=== PATIENT | male | born 1975 | race Two or more races ===

== ENCOUNTER → 2019-12-24 | Emergency (ER) | payer MEDICAID ==
[~2019-12-24] VITALS: Ht 177.8 cm; Wt 63.5 kg
[~2019-12-24] MED LIST: MAGNESIUM CITRATE SOLUTION 300 ML BTL PO ONE; MORPHINE SULFATE 4 MG/ML SYR/VIAL IV ONE; ONDANSETRON HCL 4 MG/2 ML VIAL IV ONE; POTASSIUM CHL 20 Meq TABLET PO ONE; SODIUM CHLORIDE 0.9% 1,000 ML IV ONE
[2019-12-24 03:15] LABS: Basophils # (auto) 0 10 ^3/uL (0-0.2); Basophils % (auto) 0.6 % (0.0-2.0); Eosinophils # (auto) 0.1 10 ^3/uL (0-0.8); Eosinophils % (auto) 0.7 % (0.0-7.0); Hematocrit 45.8 % (41.0-53.0); Hemoglobin 15.7 g/dL (13.5-17.5); Lymphocytes # (auto) 1.1 10 ^3/uL (0.4-5.4); Lymphocytes % (auto) 14.8 % (10.0-50.0); Mean Corpuscular Hemoglobin 32.6 pg (28.0-32.0); Mean Corpuscular Hgb Conc. 34.2 g/dL (32.0-36.0); Mean Corpuscular Volume 95.4 fL (80.0-100.0); Monocytes # (auto) 0.8 10 ^3/uL (0-1.3); Monocytes % (auto) 9.9 % (0.0-12.0); Neutrophils # (auto) 5.6 10 ^3/uL (1.6-8.6); Nucleated Red Blood Cells % 0.1 %; Platelet Count (auto) 230 10^3/uL (140-450); Red Cell Distribution Width 13.6 % (11.8-14.3); White Blood Cell 7.6 10^3/uL (4.4-10.8)
[2019-12-24 03:24] LABS: Albumin 3.6 g/dL (3.4-5.0); BUN/Creatinine Ratio 12.5; Calcium 8.5 mg/dL (8.5-10.1); Potassium 3.1 mmol/L (3.5-5.1)
[2019-12-24 03:27] LABS: Bilirubin, Total 0.3 mg/dL (0.2-1.0); Total Protein 7.1 g/dL (6.4-8.2)
[2019-12-24 05:00] VITALS: BP 151/115
[2019-12-24 05:14] LABS: Urine Bacteria NONE SEEN /hpf (None Seen); Urine Blood Negative /uL (Negative); Urine Specific Gravity 1.012 (1.001-1.035); Urine WBC <1 /hpf (0 - 3)
[2019-12-24 05:30] LABS: Amphetamine Screen, Urine NEGATIVE (NEGATIVE); Barbiturate Scree,Urine NEGATIVE (NEGATIVE); Benzodiazephine Screen, Urine NEGATIVE (NEGATIVE); Cannabinoid Screen, Urine NEGATIVE (NEGATIVE); Cocaine Screen, Urine NEGATIVE (NEGATIVE); Opiate Scree,Urine NEGATIVE (NEGATIVE); Phencyclidine Screen, Urine NEGATIVE (NEGATIVE)
[2019-12-24 05:31] LABS: Alcohol, Urine < 3.0 mg/dL (0-5)
== END | disposition home or self-care (01) ==
LOC: EDUNIT# 01:28 → EDBD 01:34 → ER 01:36
DX: K59.00 Constipation, unspecified (principal); E87.6 Hypokalemia
CPT/HCPCS: 36415; 74176; 80053; 80307; 81001; 82150; 83690; 85025; 96374; 96375; 99284; J2270; J2405

== ENCOUNTER 2020-06-09 08:44 | Emergency (ER) | payer MEDICAID ==
[~2020-06-09] VITALS: Ht 170.2 cm; Wt 65.8 kg
[2020-06-09 08:59] VITALS: BP 138/93
[2020-06-09] MEDS ORDERED: KETOROLAC TROMETH 60MG/2ML VIAL IM ONE (10:15)
== END 2020-06-09 10:42 | disposition home or self-care (01) ==
LOC: ER 08:44
DX: M23.91 Unspecified internal derangement of right knee (principal); X50.0XXA Overexertion from strenuous movement or load, initial encounter; Y93.89 Activity, other specified; Y92.89 Other specified places as the place of occurrence of the external cause; Y99.8 Other external cause status
CPT/HCPCS: 73562; 96372; 99283; J1885

== ENCOUNTER 2024-01-26 15:17 | Emergency (ER) | payer MEDICAID, OTHER ==
[~2024-01-26] VITALS: Ht 167.6 cm; Wt 50.2 kg
[2024-01-26 15:28] VITALS: BP 185/125; PULSE 69; RESP 18; O2SAT 1
[2024-01-26] MEDS: cloNIDine HCL 0.1 MG TAB PO ONE (15:38)
[2024-01-26 16:48] LABS: Basophils # (auto) 0 10 ^3/uL (0-0.2); Basophils % (auto) 0.5 % (0.0-2.0); Eosinophils # (auto) 0.1 10 ^3/uL (0-0.8); Eosinophils % (auto) 0.7 % (0.0-7.0); Hematocrit 46.3 % (41.0-53.0); Hemoglobin 15.6 g/dL (13.5-17.5); Lymphocytes # (auto) 1.3 10 ^3/uL (0.4-5.4); Lymphocytes % (auto) 17.5 % (10.0-50.0); Mean Corpuscular Hgb Conc. 33.7 g/dL (32.0-36.0); Mean Corpuscular Volume 94.9 fL (80.0-100.0); Monocytes # (auto) 0.7 10 ^3/uL (0-1.3); Monocytes % (auto) 8.9 % (0.0-12.0); Neutrophils # (auto) 5.4 10 ^3/uL (1.6-8.6); Neutrophils % (auto) 72.4 % (37.0-80.0); Nucleated Red Blood Cells % 0.1 %; Red Blood Cells 4.88 10^6/uL (4.5-5.90); Red Cell Distribution Width 14.1 % (11.8-14.3); White Blood Cell 7.5 10^3/uL (4.4-10.8)
[2024-01-26 17:06] LABS: Alanine Aminotransferase 16 U/L (7-40); Albumin 4.8 g/dL (3.2-4.8); Alkaline Phosphatase 91 U/L (46-116); Anion Gap 6 (5-15); Aspartate Aminotransferase 15 U/L (13-40); BUN/Creatinine Ratio 9.8 (10.0-20.0); Bilirubin, Total 0.4 mg/dL (0.2-1.0); Blood Urea Nitrogen 10 mg/dL (9-23); Calcium 9.6 mg/dL (8.5-10.1); Carbon Dioxide 31 mmol/L (20-30); Chloride 103 mmol/L (98-107); Glucose 135 mg/dL (74-106); Potassium 3.6 mmol/L (3.5-5.1); Sodium 140 mmol/L (136-145)
== END 2024-01-26 18:59 | disposition home or self-care (01) ==
LOC: ER 15:17
DX: I10 Essential (primary) hypertension (principal); R07.89 Other chest pain
CPT/HCPCS: 36415; 71045; 80053; 83880; 84484; 85025

== ENCOUNTER 2024-12-23 12:14 | Inpatient (IN) | payer MEDICAID ==
[~2024-12-23] VITALS: Ht 167.6 cm; Wt 48.6 kg
--- NOTE | 2024-12-23 12:32 | ED.PDOC ---
HPI Comments Initial Vital Signs: Temp : 98.5F BP: 147/98 HR: 90 RR: 14 SpO2: 100% Past Surgical History: Denies Social History: Tobacco use. Denies ETOH or drug use. Medications: Patient does not know the name Allergies: NKDA Past Medical History: Anxiety, developmental delay possible autism HPI: Poor Historian. 49-year-old male [facility] for initially having nonspecific generalized abdominal pain after he ate some spicy food some mountain dew some Cheetos and a sandwich. He said the abdominal pain has subsided but then he started developing chest pain and anxiety. He has known history of anxiety. Per EMS, patient was tachypneic at the scene with stable vital signs. Chest pain is nonspecific generalized across his chest. Denies any cardiac history or use of drugs. REVIEW OF SYSTEMS: CONSTITUTIONAL: Denies acute: fever, diaphoresis, chills, generalized weakness. HEAD: Denies acute: headache, photophobia Eyes: Denies acute: Double vision, vision loss, eye pain, eye discharge. EARS: Denies acute: tinnitus, hearing loss, ear discharge, ear pain, THROAT: Denies acute: sore throat, swelling, difficulty swallowing , pain with swallowing, change in voice. NECK: Denies acute: neck pain, neck swelling, stiff neck. HEART: Denies acute : palpitations, LUNGS: Denies acute: SOB, wheezing, cough, hemoptysis ABDOMEN: Denies acute: abdominal pain, Nausea, Vomiting, diarrhea, melena , hematemesis, hematochezia SKIN: Denies acute: rash, redness, lesions, itchiness. EXTREMITIES: Denies acute: calf pain, numbness, tingling, weakness, denies pain in extremity. Denies acute: Low back pain. Neuro: Denies acute: focal neurological deficit, motor or sensory focal neurological deficit, tremors, seizure like activity, confusion, dizziness, change in mental status, loss of bowel or bladder function, cauda equina like symptoms. : Denies acute: dysuria, hematuria, flank pain, increase in urinary frequency. PSYCH: Denies acute: hallucination, suicidal ideation, homicidal ideation. PHYSICAL EXAM: General: no acute distress, awake and alert. Head: normocephalic, atraumatic. Neck: supple, trachea is midline, no swelling. Throat: Normal phonation. Eyes:, no erythema, no purulent discharge, no proptosis, no icterus. Heart: regular rate, regular rhythm, no significant murmur appreciated. Lungs: no apparent respiratory distress, Able to speak in full sentences. No wheezing, no rhonchi, no crackles. No stridors Clear to auscultation bilaterally. Abdomen: non tender to palpation, non distended, soft, no guarding, no rebound, + bowel sounds. Neuro: Awake, Alert, oriented to name, self, situation, follows commands GCS=15. Speech is normal. Skin: no petechia, no purpura, no cyanosis, non-pale, not jaundice. Lower extremities: --no - Pitting edema no deformity, no focal swelling, no calf TTP. Makes eye contact. moves all four extremities. Face: no apparent facial droop. No CVA tenderness to percussion bilaterally. Ambulating in the ED independently. Ears: Normal appearing TM b/l, Stroke: finger to nose cerebellar testing is intact. No pronator drift. Symmetrical medical record assistant muscle strength b/l PERRLA, EOM-I CN 2-12 are grossly intact, Pedal pulses are palpable. No nystagmus. No nuchal rigidity, Kernig's sign, Brudzinski's sign, no meningeal signs. ED COURSE: Chief Complaint: Chest Pain Time Seen by MD: 12:31 Primary Care Provider: unknown Reviewed Notes: Nurses Notes, Medications, Allergies Allergies: Coded Allergies: NO KNOWN ALLERGIES (Unverified , 12/24/19) Information Source: Patient, Emergency Med Personnel Mode of Arrival: EMS Was a procedure done? Was a procedure done?: No CP Differential Dx Differential Diagnosis: N/A Differential Diagnosis: Other (DDX include renal disease, thyroid disease, electrolyte abnormality, increased salt intake, medications non-compliance, undiagnosed HTN, Hypertensive crisis, hypertensive urgency., drug toxicity.) Differential Diagnosis: Other (Ddx include but not limitied to gastritis, musculoskeletal pain, radiculopathy, atypical chest pain, dissection, aneurysm, ACS, unstable angina, hiatal hernia, GERD, anxiety, costochondritis, PE, pneumothroax, neoplasm, cardiac ischemia, drug abuse, anemia.) X-Ray, Labs, Meds, VS Vital Signs Date Time Temp Pulse Resp B/P (MAP) Pulse Ox O2 Delivery O2 Flow Rate FiO2 12/23/24 21:36 68 130/100 12/23/24 21:04 65 120/70 12/23/24 20:06 78 169/118 12/23/24 20:05 75 169/118 12/23/24 20:00 76 12/23/24 19:06 169/115 12/23/24 17:54 98.0 71 20 155/114 (128) 99 98.0 12/23/24 17:54 71 155/114 12/23/24 17:19 88 144/111 12/23/24 17:01 144/111 12/23/24 16:22 146/112 12/23/24 16:01 87 18 98 Room Air 12/23/24 16:01 98.5 87 18 146/112 (123) 98 98.5 12/23/24 16:01 87 18 96 Room Air* 0 21 12/23/24 12:21 98.5 90 14 147/98 (114) 100 98.5 Lab Test 12/23/24 15:42 12/23/24 13:47 12/23/24 12:39 12/23/24 12:30 Range/Units Troponin I High Sensitivity 18 13 11 </=54 ng/L Lactic Acid Level 0.8 0.4-2.0 mmol/L White Blood Count 6.2 4.4-10.8 10^3/uL Red Blood Count 4.63 4.5-5.90 10^6/uL Hemoglobin 15.3 13.5-17.5 g/dL Hematocrit 44.8 41.0-53.0 % Mean Corpuscular Volume 96.8 80.0-100.0 fL Mean Corpuscular Hemoglobin 33.0 H 28.0-32.0 pg Mean Corpuscular Hemoglobin Concent 34.1 32.0-36.0 g/dL Red Cell Distribution Width 13.9 11.8-14.3 % Platelet Count 260 140-450 10^3/uL Mean Platelet Volume 8.8 6.9-10.8 fL Neutrophils (%) (Auto) 69.8 37.0-80.0 % Lymphocytes (%) (Auto) 20.1 10.0-50.0 % Monocytes (%) (Auto) 8.9 0.0-12.0 % Eosinophils (%) (Auto) 0.6 0.0-7.0 % Basophils (%) (Auto) 0.6 0.0-2.0 % Neutrophils # (Auto) 4.3 1.6-8.6 10 ^3/uL Lymphocytes # (Auto) 1.2 0.4-5.4 10 ^3/uL Monocytes # (Auto) 0.5 0-1.3 10 ^3/uL Eosinophils # (Auto) 0 0-0.8 10 ^3/uL Basophils # (Auto) 0 0-0.2 10 ^3/uL Nucleated Red Blood Cells 0.1 % Sodium Level 143 136-145 mmol/L Potassium Level 3.6 3.5-5.1 mmol/L Chloride Level 107 98-107 mmol/L Carbon Dioxide Level 28 20-31 mmol/L Anion Gap 8 5-15 Blood Urea Nitrogen 10 9-23 mg/dL Creatinine 1.11 0.700-1.30 mg/dL Glomerular Filtration Rate Calc 81 >90 mL/min BUN/Creatinine Ratio 9.0 L 10.0-20.0 Serum Glucose 102 74-106 mg/dL Calcium Level 10.3 8.7-10.4 mg/dL Magnesium Level 2.1 1.6-2.6 mg/dL Total Bilirubin 0.6 0.2-1.0 mg/dL Aspartate Amino Transferase (AST) 12 L 13-40 U/L Alanine Aminotransferase (ALT) 20 7-40 U/L Alkaline Phosphatase 82 46-116 U/L Total Protein 7.1 5.7-8.2 g/dL Albumin 4.9 H 3.2-4.8 g/dL Lipase 35 12-53 U/L Urine Color Light-yellow Yellow Urine Clarity Clear Clear Urine pH 7.0 5.0-9.0 Urine Specific [place] 1.016 1.001-1.035 Urine Protein Negative Negative Urine Ketones Negative Negative Urine Blood Negative Negative /uL Urine Nitrite Negative Negative Urine Bilirubin Negative Negative Urine Urobilinogen Normal Negative mg/dL Urine Leukocyte Esterase Negative Negative /uL Urine RBC 1 0 - 3 /hpf Urine Microscopic WBC 0-3 /HPF Urine Squamous Epithelial Cells None seen <5 /hpf Urine Bacteria None seen None Seen /hpf Urine Mucus Few None Seen Urine Glucose Normal Normal mg/dL Urine Opiates Screen Neg NEGATIVE Urine Fentanyl Screen Neg NEGATIVE Urine Barbiturates Screen Neg NEGATIVE Urine Phencyclidine Screen Neg NEGATIVE Urine Amphetamines Screen Neg NEGATIVE Urine Benzodiazepines Screen Neg NEGATIVE Urine Cocaine Screen Neg NEGATIVE Urine Cannabinoids Screen Neg NEGATIVE Current Medications Medications (Trade) Dose Ordered Sig/Demi Route Start Time Stop Time Status Last Admin Nitroglycerin (Ntrostat Sublingual) 0.4 mg ONCE ONCE SL 12/23/24 16:15 12/23/24 16:16 DC 12/23/24 16:22 Labetalol HCl (Labetalol HCl) 5 mg ONCE ONCE IV 12/23/24 17:15 12/23/24 17:16 DC 12/23/24 17:19 Hydralazine HCl (Apresoline Injection) 5 mg ONCE ONCE IV 12/23/24 18:30 12/23/24 18:38 DC 12/23/24 19:06 Labetalol HCl (Labetalol HCl) 10 mg ONCE ONCE IV 12/23/24 19:45 12/23/24 19:46 DC 12/23/24 20:06 Nicardipine HCl 250 ml @ 50 mls/hr Q5H IV 12/23/24 21:00 12/23/24 21:36 [place] [id number] Ph: [phone] DIAGNOSTIC IMAGING Diagnostic Imaging Report : [id number] Signed PATIENT: MANDY RIVERA ACCT: [id number] UNIT: [id number] : 1975 LOC: ER ROOM / BED: / AGE / SEX: 49 / M ADM STATUS: REG ER SERVICE 1230 ORDERING PHYSICIAN: CATHY METCALF DO PROCEDURE(s): CXRP - CHEST PORTABLE REASON: cp ORDER NUMBER(s): [id number], ACCESSION NUMBER(s): [id number] CHEST RADIOGRAPH Indication: cp Technique: Single frontal view of the chest was obtained COMPARISON: XY CHEST PORTABLE on DOS: 01/26/24 FINDINGS: Lines and Tubes: None Lungs: Clear Pleura: No effusion. No pneumothorax. Cardiomediastinal contours: Unremarkable Bones: Unremarkable IMPRESSION: No acute disease. ATED BY: SENTHIL ALEGRE MD DICTATED DATE/TIME: 12/23/24 1253 SIGNED BY: SENTHIL ALEGRE MD SIGNED DATE/TIME: 12/23/24 1253 CC: Time of 1ST Reevaluation: 13:31 Reevaluation 1ST: Unchanged Time of 2ND Reevaluation: 17:58 (Chest pain has resolved awhile ago however patient continues to be hypertensive. We will try some sublingual nitroglycerin. We tried labetalol 5 mg IV.) Patient Education/Counseling: Diagnosis, Treatment Family Education/Counseling: No Family Present Comments Patient presented with the above HPI.--chest pain----workup was initiated. patient was found with the above mentioned diagnosis. the following medications were ordered: please refer to order lists of meds and tests obtained by myself Dr. Metcalf. Patient ED course and VS have been stabilized. Patient has been reassessed in the ED and remained in a stable condition. Pertinent incidental findings were discussed with the patient and/or family. Patient/family voices understanding and is agreeable with plan. Patient has been observed in the ED adequate length of time to insure improvement/stability. Escalation of care considered: Consideration of escalation to observation or admission Patient was found with hypertensive urgency. Multiple interventions were given, nitroglycerin, labetalol, hydralazine. Patient continues to be hypertensive. Nicardipine drip was initiated. Patient was ADMITTED to the medicine team for further evaluation and treatment of their presentation. All the reports of any imaging studies that were ordered by myself were reviewed by myself. Departure 1 Departure Time of Disposition: 17:35 Impression: Primary Impression: Chest pain Additional Impression: Hypertensive urgency Disposition: 09 ADMITTED INPATIENT Admit to: Tele Condition: Guarded Additional Instructions: Discharged With: Self Critical Care Note Critical Care Time?: Yes (55 min-critical care time only) Heart Score Heart Score: Heart Score Response (Comments) Value History Slightly Suspicious 0 EKG Normal 0 Age 45-64 1 Risk Factors 1 or 2 risk factors 1 Troponin Normal limit 0 Total 2 I personally scribed for CATHY METCALF DO ([email or web address]) on 12/23/24 at 12:32. Electronically submitted by Nestor Daily ([email or web address]). I personally scribed for CATHY METCALF DO ([email or web address]) on 12/23/24 at 13:24. E lectronically submitted by Nestor Daily ([email or web address]). I personally scribed for CATHY METCALF DO ([email or web address]) on 12/23/24 at 13:47. El ectronically submitted by Nestor Daily ([email or web address]). CATHY METCALF DO Dec 23, 2024 12:32
--- NOTE | 2024-12-23 12:55 | DVH ---
CHEST RADIOGRAPH Indication: cp Technique: Single frontal view of the chest was obtained COMPARISON: XY CHEST PORTABLE on DOS: 01/26/24 FINDINGS: Lines and Tubes: None Lungs: Clear Pleura: No effusion. No pneumothorax. Cardiomediastinal contours: Unremarkable Bones: Unremarkable IMPRESSION: No acute disease.
[2024-12-23 12:59] LABS: Basophils # (auto) 0 10 ^3/uL (0-0.2); Basophils % (auto) 0.6 % (0.0-2.0); Eosinophils # (auto) 0 10 ^3/uL (0-0.8); Eosinophils % (auto) 0.6 % (0.0-7.0); Hematocrit 44.8 % (41.0-53.0); Hemoglobin 15.3 g/dL (13.5-17.5); Lymphocytes # (auto) 1.2 10 ^3/uL (0.4-5.4); Lymphocytes % (auto) 20.1 % (10.0-50.0); Mean Corpuscular Hgb Conc. 34.1 g/dL (32.0-36.0); Mean Corpuscular Volume 96.8 fL (80.0-100.0); Monocytes # (auto) 0.5 10 ^3/uL (0-1.3); Monocytes % (auto) 8.9 % (0.0-12.0); Neutrophils # (auto) 4.3 10 ^3/uL (1.6-8.6); Neutrophils % (auto) 69.8 % (37.0-80.0); Nucleated Red Blood Cells % 0.1 %; Platelet Count (auto) 260 10^3/uL (140-450); Red Blood Cells 4.63 10^6/uL (4.5-5.90); Red Cell Distribution Width 13.9 % (11.8-14.3); White Blood Cell 6.2 10^3/uL (4.4-10.8)
[2024-12-23 13:18] LABS: Alanine Aminotransferase 20 U/L (7-40); Alkaline Phosphatase 82 U/L (46-116); Anion Gap 8 (5-15); Bilirubin, Total 0.6 mg/dL (0.2-1.0); Blood Urea Nitrogen 10 mg/dL (9-23); Calcium 10.3 mg/dL (8.7-10.4); Carbon Dioxide 28 mmol/L (20-31); Chloride 107 mmol/L (98-107); Glucose 102 mg/dL (74-106); Lipase 35 U/L (12-53); Magnesium 2.1 mg/dL (1.6-2.6); Potassium 3.6 mmol/L (3.5-5.1); Sodium 143 mmol/L (136-145); Total Protein 7.1 g/dL (5.7-8.2)
[2024-12-23 13:24] LABS: Albumin 4.9 g/dL (3.2-4.8); Aspartate Aminotransferase 12 U/L (13-40)
[2024-12-23 16:01] VITALS: PULSE 87; RESP 18; O2SAT 96
[2024-12-23] MEDS: NITROGLYCERIN 0.4 MG SL TAB SL ONE (16:22)
[2024-12-23 16:28] LABS: Urine Bacteria None Seen /hpf (None Seen)
[2024-12-23 16:39] LABS: Urine Blood Negative /uL (Negative); Urine Clarity Clear (Clear); Urine Color Light-Yellow (Yellow); Urine Mucus FEW (None Seen); Urine Protein, UAD Negative (Negative); Urine Specific Gravity 1.016 (1.001-1.035); Urine Squamous Epithelial Cell None Seen /hpf (<5); Urine Urobilinogen Normal (Negative)
[2024-12-23 16:57] LABS: Amphetamine Screen, Urine Neg (NEGATIVE); Barbiturate Scree,Urine Neg (NEGATIVE); Benzodiazephine Screen, Urine Neg (NEGATIVE); Cannabinoid Screen, Urine Neg (NEGATIVE); Cocaine Screen, Urine Neg (NEGATIVE); Opiate Scree,Urine Neg (NEGATIVE); Phencyclidine Screen, Urine Neg (NEGATIVE)
[2024-12-23] MEDS: LABETALOL HCL 20 MG/4 ML VL IV ONE ×3 (17:19→20:06)
[2024-12-23] MEDS: hydrALAZINE HCL 20 MG/ML VL IV ONE (19:06)
[2024-12-23 19:45] VITALS: PULSE 81; RESP 19; O2SAT 98
[2024-12-23 20:00] VITALS: PULSE 73; RESP 18; O2SAT 99
[2024-12-23] MEDS ORDERED: ONDANSETRON HCL 4 MG/2 ML VIAL IV PRN (23:30)
[2024-12-23] MEDS: LISINOPRIL 5 MG TAB PO ONE (23:30)
[2024-12-23] MEDS: PANTOPRAZOLE 40 MG/10 ML VIAL INJ IV ONE (23:30)
[2024-12-23] MEDS ORDERED: ACETAMINOPHEN 325 MG TAB PO PRN (23:30)
[2024-12-23] MEDS ORDERED: MORPHINE SULFATE INJ 2 MG/ml SYRG IV PRN (23:30)
[2024-12-23] MEDS ORDERED: NITROGLYCERIN 0.4 MG SL TAB SL PRN (23:30)
--- NOTE | 2024-12-23 23:34 | DVHHPRES ---
History of Present Illness Resident Creating Document: DESTINI ASHLEY RESDIENT History of Present Illness This is a 49-year-old male with a past medical history of hypertension, and panic attacks brought to the hospital due to altered mental status status post receive consciousness. Per patient, today after taking lunch (Cheetos, sandwich, mountain dive, some spicy food) developed dizziness, headache, generalized shaking and chest pain which subsequently lost consciousness, but the patient did not hit his head. Upon waking up patient was confused for around 10 minutes and did not have any other symptoms. He denies fever, nausea, vomiting, any bowel or bladder habit changes or recent sick contact. PMHx: Hypertension, and panic attack PSHx: Nonsignificant Family history: Noncontributory Social history: Smokes cigarettes with 1 pack year history, denies alcohol and any other drug use Home medication: Lisinopril and diclofenac Allergic history: No known allergies Patient is seen and examined at bedside. Patient is feeling better since admission. Review of Systems Review of Systems General: patient denies fever, fatigue, weaknes, sweating, any recent changes in appetite and weight HEENT: No headaches, visiual changes, hearing loss, tinnitus, nasal congestion and discharge, and sore throat. Cardiovascular: Denies chest pain, palpitations, dyspnea on exertion, orthopnea, or claudication. Respiratory: No cough, and wheezing. Gastrointestinal: Denies nausea, vomiting, dysphagia, odynophagia, heartburn, abdominal pain, flatulence, bloating, diarrhea, constipation, change in stool, or blood in stool. Genitourinary: No dysuria, hematuria, discharge, frequency, urgency, nocturia, incontinence, and urinary retention. Endocrine: No heat or cold intolerance, polydipsia, polyuria, and polyphagia. Neurological: No dizziness, extremity weakness and numbness, tremors, gait disturbance, seizures, and memory impairment. Psychiatric: Denies depression, anxiety,or insomnia. Musculoskeletal: Denies neck pain, stiffness and swelling, back pain, muscle weakness, joint pain, stiffness, swelling, or limited range of motion. Skin: No rashes, itching, skin lesion, changes in hair, nail, skin texture and breast. Hematologic/Lymphatic: Denies easy bruising, bleeding tendencies, or lymph node enlargement. Allergies: Coded Allergies: NO KNOWN ALLERGIES (Unverified , 12/24/19) Medications Current Medications Medications Dose Ordered Sig/Demi Route Start Time Stop Time Status Last Admin Dose Admin Nicardipine HCl 250 ml @ 50 mls/hr Q5H IV 12/23/24 21:00 12/23/24 21:36 50 MLS/HR Exam Vital Signs Vital Signs Date Time Temp Pulse Resp B/P (MAP) Pulse Ox O2 Delivery O2 Flow Rate FiO2 12/23/24 21:36 68 130/100 12/23/24 17:54 98.0 20 99 98.0 12/23/24 16:01 Room Air 12/23/24 16:01 0 21 Exam General Appearance: Alert, Oriented X3, Cooperative, No acute distress HEENT: Atraumatic, PERRLA, EOMI, Mucous membrane moist/pink Respiratory: Clear to auscultation, Normal air movement Cardiovascular: Regular rate, Normal S1, Normal S2, No murmurs, no chest wall tenderness Abdominal: Normal bowel sounds, Soft, No tenderness, No hepatospenomegaly, No masses Extremities: No clubbing, No cyanosis, No edema, Normal pulses, No tenderness/swelling Skin: No rashes, No breakdown, No significant lesion Neuro: Normal gait, Normal speech, Strength at 5/5 X4 ext, Normal tone, Sen sation intact, Cranial nerves 3-12 NL, Reflexes 2+ Psych/Mental Status: Mental status NL, Mood NL Labs/Xrays Labs Test 12/23/24 15:42 12/23/24 13:47 12/23/24 12:39 12/23/24 12:30 Range/Units Troponin I High Sensitivity 18 </=54 ng/L Lactic Acid Level 0.8 0.4-2.0 mmol/L White Blood Count 6.2 4.4-10.8 10^3/uL Red Blood Count 4.63 4.5-5.90 10^6/uL Hemoglobin 15.3 13.5-17.5 g/dL Hematocrit 44.8 41.0-53.0 % Mean Corpuscular Volume 96.8 80.0-100.0 fL Mean Corpuscular Hemoglobin 33.0 H 28.0-32.0 pg Mean Corpuscular Hemoglobin Concent 34.1 32.0-36.0 g/dL Red Cell Distribution Width 13.9 11.8-14.3 % Platelet Count 260 140-450 10^3/uL Mean Platelet Volume 8.8 6.9-10.8 fL Neutrophils (%) (Auto) 69.8 37.0-80.0 % Lymphocytes (%) (Auto) 20.1 10.0-50.0 % Monocytes (%) (Auto) 8.9 0.0-12.0 % Eosinophils (%) (Auto) 0.6 0.0-7.0 % Basophils (%) (Auto) 0.6 0.0-2.0 % Neutrophils # (Auto) 4.3 1.6-8.6 10 ^3/uL Lymphocytes # (Auto) 1.2 0.4-5.4 10 ^3/uL Monocytes # (Auto) 0.5 0-1.3 10 ^3/uL Eosinophils # (Auto) 0 0-0.8 10 ^3/uL Basophils # (Auto) 0 0-0.2 10 ^3/uL Nucleated Red Blood Cells 0.1 % Sodium Level 143 136-145 mmol/L Potassium Level 3.6 3.5-5.1 mmol/L Chloride Level 107 98-107 mmol/L Carbon Dioxide Level 28 20-31 mmol/L Anion Gap 8 5-15 Blood Urea Nitrogen 10 9-23 mg/dL Creatinine 1.11 0.700-1.30 mg/dL Glomerular Filtration Rate Calc 81 >90 mL/min BUN/Creatinine Ratio 9.0 L 10.0-20.0 Serum Glucose 102 74-106 mg/dL Calcium Level 10.3 8.7-10.4 mg/dL Magnesium Level 2.1 1.6-2.6 mg/dL Total Bilirubin 0.6 0.2-1.0 mg/dL Aspartate Amino Transferase (AST) 12 L 13-40 U/L Alanine Aminotransferase (ALT) 20 7-40 U/L Alkaline Phosphatase 82 46-116 U/L Total Protein 7.1 5.7-8.2 g/dL Albumin 4.9 H 3.2-4.8 g/dL Lipase 35 12-53 U/L Urine Color Light-yellow Yellow Urine Clarity Clear Clear Urine pH 7.0 5.0-9.0 Urine Specific [place] 1.016 1.001-1.035 Urine Protein Negative Negative Urine Ketones Negative Negative Urine Blood Negative Negative /uL Urine Nitrite Negative Negative Urine Bilirubin Negative Negative Urine Urobilinogen Normal Negative mg/dL Urine Leukocyte Esterase Negative Negative /uL Urine RBC 1 0 - 3 /hpf Urine Microscopic WBC 0-3 /HPF Urine Squamous Epithelial Cells None seen <5 /hpf Urine Bacteria None seen None Seen /hpf Urine Mucus Few None Seen Urine Glucose Normal Normal mg/dL Urine Opiates Screen Neg NEGATIVE Urine Fentanyl Screen Neg NEGATIVE Urine Barbiturates Screen Neg NEGATIVE Urine Phencyclidine Screen Neg NEGATIVE Urine Amphetamines Screen Neg NEGATIVE Urine Benzodiazepines Screen Neg NEGATIVE Urine Cocaine Screen Neg NEGATIVE Urine Cannabinoids Screen Neg NEGATIVE Assessment/Plan Assessment/Plan Assessment: Possible syncope Hypertension History of panic attack EKG shows normal sinus rhythm, with no acute ST or T-wave changes Plan: Continue home medicine, lisinopril Echocardiogram Orthostatic vitals Discontinue nicardipine drip Head CT scan Carotid Doppler DIET: Cardiac diet DVT PROPHYLAXIS: Lovenox GI PROPHYLAXIS:: Protonix CODE STATUS: Goal of care for more than 18 minutes, full code DISPOSITION: Telemetry Patient's status and plan discussed with the patient. Case discussed with Dr. Valladares. Plan discussed with: Patient, Other (RN) Date of Service: Dec 23, 2024 Billing Provider: SHA VALLADARES MD Common Visit Codes: [id number] INP/OBS CARE (HIGH) YOLANDA ASHLEYIbrahima CHAVES Dec 23, 2024 23:34 SHA VALLADARES MD Dec 26, 2024 10:53
[2024-12-24 00:04] LABS: Cholesterol 215 mg/dL (< 200); HDL Cholesterol 45 mg/dL (40-59); LDL Cholesterol 151 mg/dL (< 100); Triglycerides 164 mg/dL (< 150)
[2024-12-24 04:31] LABS: Basophils # (auto) 0 10 ^3/uL (0-0.2); Basophils % (auto) 0.4 % (0.0-2.0); Eosinophils # (auto) 0.1 10 ^3/uL (0-0.8); Eosinophils % (auto) 0.7 % (0.0-7.0); Hematocrit 43.5 % (41.0-53.0); Hemoglobin 15.2 g/dL (13.5-17.5); Lymphocytes # (auto) 1.5 10 ^3/uL (0.4-5.4); Lymphocytes % (auto) 17.3 % (10.0-50.0); Mean Corpuscular Hemoglobin 33.7 pg (28.0-32.0); Mean Corpuscular Hgb Conc. 35.1 g/dL (32.0-36.0); Mean Corpuscular Volume 96.1 fL (80.0-100.0); Monocytes % (auto) 10.7 % (0.0-12.0); Neutrophils # (auto) 6.3 10 ^3/uL (1.6-8.6); Neutrophils % (auto) 70.9 % (37.0-80.0); Nucleated Red Blood Cells % 0.1 %; Platelet Count (auto) 239 10^3/uL (140-450); Red Blood Cells 4.52 10^6/uL (4.5-5.90); Red Cell Distribution Width 13.8 % (11.8-14.3); White Blood Cell 8.9 10^3/uL (4.4-10.8)
[2024-12-24 04:41] LABS: Chloride 106 mmol/L (98-107); Sodium 142 mmol/L (136-145)
[2024-12-24 04:42] LABS: Anion Gap 6 (5-15); Calcium 9.8 mg/dL (8.7-10.4); Carbon Dioxide 30 mmol/L (20-31)
[2024-12-24 04:46] LABS: Potassium 3.4 mmol/L (3.5-5.1)
[2024-12-24 04:47] LABS: BUN/Creatinine Ratio 9.1 (10.0-20.0); Blood Urea Nitrogen 10 mg/dL (9-23); Glucose 104 mg/dL (74-106)
[2024-12-24 04:55] LABS: INR 1.06 (0.9-1.15); Partial Thromboplastin Time 31.6 SEC (24.5-34.5); Prothrombin Time 11.2 sec (9.3-11.8)
[2024-12-24] MEDS ORDERED: SODIUM CHLORIDE 0.9% 1,000 ML IV ONE (05:00)
--- NOTE | 2024-12-24 06:42 | ECG ---
[facility] Test Date: 2024-12-24 Test Time: 01:06:53 Pat Name: MANDY RIVERA Department: ER Room: 0295T Gender: M Personal Counselor: AM : 1975 Requested By: RAISSA FINCH Order Number: [id number] Reading MD: Seth Lilly Measurements Intervals [place] Rate: 64 P: -11 ID: [id number] QRS: 128 QRSD: 150 T: 0 QT: 444 QTc: 458 Interpretive Statements Sinus rhythm RBBB and LPFB Electronically Signed On 12-24-2024 17:46:16 PDT by Seth Lilly Please click the below link to view image of tracing.
--- NOTE | 2024-12-24 07:28 | DVH ---
CT HEAD WITHOUT CONTRAST INDICATION: Syncope with head trauma EXAM DATE: 12/24/2024 06:38 AM COMPARISON: None RADIATION DOSE: CTDIvol: 51.63 mGy, DLP: 755.91 mGy*cm PROCEDURE: CT scans of the head were obtained from the vertex to the skull base. Sagittal and coronal reconstructions were provided. All CT scans at this medical facility are performed using dose modulation techniques as appropriate t o a performed exam including the following: Automated exposure control was utilized; adjustment of th e MA and/or KV according to patient size; and use of iterative reconstruction technique. FINDINGS: There is sulcal and ventricular prominence. The brainshows normal morphology and carrizales-whi te matter differentiation, without intracranial hemorrhage, extra-axial fluid collection, mass effect or acute large vessel infarct. The ventricles are normal in size. The basal cisterns are patent. The skull and visible facial bones are intact. The paranasal sinuses, mastoid air cells and middle ear c avities are well-aerated. The soft tissues of the scalp are unremarkable. IMPRESSION: No acute intracranial abnormality.
[2024-12-24 07:59] VITALS: PULSE 64; RESP 16; O2SAT 98
--- NOTE | 2024-12-24 09:31 | DVHPN2 ---
Subjective Complaining of vague chest pain/pressure with dizziness; no recurrence of syncope Reviewed: Care Plan, H&P, Labs, Medications, Previous Orders, Radiology Changes from previous H/P or p: Changes Objective Vitals Vital Signs Date Time Temp Pulse Resp B/P (MAP) Pulse Ox O2 Delivery O2 Flow Rate FiO2 12/24/24 08:00 77 12/24/24 07:59 16 98 Room Air* 0 21 12/24/24 07:59 98.0 116/95 (102) 98.0 Intake/Output Intake and Output 12/24/24 07:00 Intake Total 100 ml Balance 100 ml Intake IV Total 100 ml General Appearance: Alert, Oriented X3, Cooperative, No acute distress HEENT: Atraumatic Lungs: Clear to auscultation, Normal air movement Cardiovascular: Regular rate, Normal S1, Normal S2, No murmurs Abdomen: Normal bowel sounds, Soft, No tenderness Extremities: No edema Neuro: Normal speech, Cranial nerves 3-12 NL Psych/Mental Status: Mental status NL, Mood NL Medications Current Medications Medications Dose Ordered Sig/Demi Route Start Time Stop Time Status Last Admin Dose Admin Acetaminophen 650 mg Q6HP PRN PO 12/23/24 23:30 Ondansetron HCl 4 mg Q4HP PRN IV 12/23/24 23:30 Enoxaparin Sodium 40 mg DAILY SC 12/24/24 10:00 Nitroglycerin 0.4 mg Q5MINP PRN SL 12/23/24 23:30 Morphine Sulfate 2 mg Q30M PRN IV 12/23/24 23:30 Lisinopril 5 mg DAILY PO 12/24/24 10:00 Pantoprazole Sodium 40 mg DAILY IV 12/24/24 10:00 Laboratory Results Laboratory Tests 12/24/24 04:13 Chemistry Test 12/23/24 12:39 12/24/24 04:13 Albumin 4.9 g/dL (3.2-4.8) H Calcium Level 10.3 mg/dL (8.7-10.4) 9.8 mg/dL (8.7-10.4) Magnesium Level 2.1 mg/dL (1.6-2.6) Total Protein 7.1 g/dL (5.7-8.2) Coagulation Test 12/24/24 04:13 Prothrombin Time 11.2 sec (9.3-11.8) Prothrombin Time INR 1.06 (0.9-1.15) Activated Partial Thromboplast Time 31.6 SEC (24.5-34.5) Lipid panel Test 12/23/24 12:39 Cholesterol Level 215 mg/dL (< 200) H HDL Cholesterol 45 mg/dL (40-59) Lipase 35 U/L (12-53) Triglycerides Level 164 mg/dL (< 150) H LFT Test 12/23/24 12:39 Alanine Aminotransferase (ALT) 20 U/L (7-40) Alkaline Phosphatase 82 U/L (46-116) Aspartate Amino Transferase (AST) 12 U/L (13-40) L Total Bilirubin 0.6 mg/dL (0.2-1.0) HgA1c, TSH Test 12/23/24 12:39 Hemoglobin A1c 5.6 % A1C (<5.7) Urinalysis Test 12/23/24 12:30 Urine Color Light-yellow (Yellow) Urine Clarity Clear (Clear) Urine pH 7.0 (5.0-9.0) Urine Specific [place] 1.016 (1.001-1.035) Urine Protein Negative (Negative) Urine Ketones Negative (Negative) Urine Blood Negative /uL (Negative) Urine Nitrite Negative (Negative) Urine Bilirubin Negative (Negative) Urine Urobilinogen Normal mg/dL (Negative) Urine Leukocyte Esterase Negative /uL (Negative) Urine RBC 1 /hpf (0 - 3) Urine Microscopic WBC /HPF (0-3) Urine Squamous Epithelial Cells None seen /hpf (<5) Urine Bacteria None seen /hpf (None Seen) Urine Mucus Few (None Seen) Urine Glucose Normal mg/dL (Normal) Labs and/or images reviewed: Labs reviewed by me, Image(s) reviewed by me Assessment/Plan Assessment/Plan A 49-year-old male patient; with past medical history of essential hypertension and panic attacks; who presented to emergency department after a syncope. #Syncope in the setting of hypertensive emergency; fall precautions; no orthostatic changes; reviewed head CT and carotid ultrasound along with echocardiogram; telemetry; consulted cardiology; continue monitoring #Chest pain/pressure in the setting of hypertensive emergency; on aspirin and statin; telemetry; reviewed echocardiogram, troponin, and EKG; consulted cardiology; continue monitoring #Hypertensive emergency; off nicardipine infusion; telemetry; consulted cardiology; continue monitoring #Hypertensive heart disease with heart failure; not in exacerbation; reviewed echocardiogram; continue antihypertensive medications and adjust according to blood pressure measurements; consulted cardiology; continue monitoring #Hypokalemia; mild; unclear etiology; replace electrolyte/s as indicated; ordered morning magnesium level; continue monitoring #Mixed dyslipidemia; reviewed lipid profile; normal A1c of 5.6%; continue statin; continue monitoring #Panic attacks; no active issues at this time; continue monitoring #Tobacco use disorder; drug screen negative; counseled on tobacco use cessation for 17 minutes; continue monitoring Goals of care discussed for 20 minutes; full code Late Entry. This medical document was created using an electronic medical record system with computerized dictation system. Although this document has been carefully reviewed, there might still be some phonetic and typographical errors. These areas are purely typographical due to imperfections of the software programs, and do not reflect any compromise in the patient's medical care. Plan discussed with: Patient, Other (Nurse) Date of Service: Dec 24, 2024 Billing Provider: CECIL JESSICA MD Common Visit Codes: 77141-[id number] INP/OBS CARE(HIGH) Secondary Visit Codes: 06256-GQNFN CHNG SMOKING >10MIN (Counseled for 17 minutes on tobacco use cessation), [id number] CARE PLAN 30 MINUTES (20 minutes) CECIL JESSICA MD Dec 24, 2024 09:31
[2024-12-24] MEDS: ENOXAPARIN SOD 40 MG/0.4 ML SYRINGE SC SCH (10:00)
[2024-12-24] MEDS: PANTOPRAZOLE 40 MG/10 ML VIAL INJ IV SCH (10:00)
[2024-12-24 10:39] VITALS: BP 128/83; PULSE 74; RESP 17; TEMP 98.1; O2SAT 95
[2024-12-24] MEDS: LISINOPRIL 5 MG TAB PO SCH (12:02)
[2024-12-24 12:55] VITALS: BP 128/97; PULSE 69; PULSE 74; RESP 17; TEMP 97.9; TEMP 98.1; O2SAT 100; O2SAT 95
--- NOTE | 2024-12-24 14:40 | DVH ---
Carotid Duplex Date: 12/24/2024 11:34 AM Clinical History: Syncope Comparison: None Technique: Duplex Doppler evaluation of the extracranial carotid and vertebral arteries including color Doppler and spectral/pulsed waveform analysis was performed. Findings: Velocites and ratios withib normal limits. IMPRESSION: No hemodynamically significant stenosis noted in the right carotid system. No hemodynamically significant stenosis noted in the left carotid system. Reference: Radiology 2003; 229:[id number]
--- NOTE | 2024-12-24 16:12 | DVHSR ---
APPROVED REPORT EXAM: LIMITED Two-dimensional and M-mode echocardiogram. Blood Pressure: 116/95 mmHg INDICATION Syncope RISK FACTORS Height: 5' 10", Weight: 160 DIMENSIONS LVDd5.1 (3.8-5.7cm)LA (2D) (1.9-4.0cm)Aortic Root4.0 (2.0-3.7cm) LVDs4.2 (2.5-4.0cm)LA (MM) (1.9-4.0cm)Aortic Cusp Exc1.7 (1.5-2.0cm) EF (%) 40.0 (55-70%)Rt. Atrium (1.9-4.0cm)Asc. Aorta cm IVSd1.0 (0.7-1.1cm)RV (D) (1.8-2.4cm) PWd0.9 (0.7-1.1cm) Mitral Valve MitralMitral Stenosis E/A ratio0.02D MVAcm2 Aortic Valve Aortic ValveAortic Stenosis LVOT Diameter2.4 (1.8-2.4cm)Doppler AVAcm2 Pulmonic Valve V20.54m/s Other Information Quality : LimitedRhythm : Technically limited study due to body habitus, patient with parasternal views only. Conclusion Sinus rhythm. Left ventricular enlargement. Aortic root enlargement. Valves are normal. Left ventricular systolic function is diminished. EF is approximately 25% with global hypokinesis. 25% with normal RV function. Doppler is unremarkable. No pericardial effusion masses or vegetations discernible.
[2024-12-24 17:00] VITALS: BP 124/78; PULSE 63; RESP 20; TEMP 97.6; O2SAT 100
[2024-12-24] MEDS: ASPirin 81 mg TAB PO ONE (18:45)
[2024-12-24 20:00] VITALS: PULSE 73; RESP 18; O2SAT 99
[2024-12-24 21:00] VITALS: BP 141/104; PULSE 73; RESP 18; TEMP 97.9; O2SAT 99
[2024-12-24] MEDS: ATORVASTATIN 20 MG TAB PO SCH (21:12)
[2024-12-25 01:00] VITALS: BP 121/82; PULSE 63; RESP 18; TEMP 98.1; O2SAT 99
[2024-12-25 05:00] VITALS: BP 113/76; PULSE 74; RESP 18; TEMP 98.1; O2SAT 98
[2024-12-25 07:34] LABS: Anion Gap 8 (5-15); Carbon Dioxide 28 mmol/L (20-31); Chloride 104 mmol/L (98-107); Potassium 4.1 mmol/L (3.5-5.1); Sodium 140 mmol/L (136-145)
[2024-12-25 07:35] LABS: Calcium 9.8 mg/dL (8.7-10.4)
[2024-12-25 07:40] LABS: BUN/Creatinine Ratio 7.4 (10.0-20.0); Blood Urea Nitrogen 9 mg/dL (9-23)
[2024-12-25 07:41] LABS: Magnesium 2.4 mg/dL (1.6-2.6)
[2024-12-25 07:47] LABS: Glucose 115 mg/dL (74-106)
[2024-12-25 08:00] VITALS: PULSE 72; PULSE 74; RESP 17; O2SAT 95
[2024-12-25] MEDS ORDERED: ASPirin 81 mg TAB PO SCH (10:00)
--- NOTE | 2024-12-25 10:46 | DVHDS2 ---
Discharge Summary Date of Admission Dec 23, 2024 at 23:28 Date of Discharge: Dec 25, 2024 Admitting Diagnosis Syncope with vague chest pressure/pain Labs/Diagnostic Data: Laboratory Results Test 12/25/24 06:55 12/24/24 04:13 12/23/24 15:42 12/23/24 13:47 Sodium Level 140 mmol/L (136-145) Potassium Level 4.1 mmol/L (3.5-5.1) Chloride Level 104 mmol/L (98-107) Carbon Dioxide Level 28 mmol/L (20-31) Anion Gap 8 (5-15) Blood Urea Nitrogen 9 mg/dL (9-23) Creatinine 1.21 mg/dL (0.700-1.30) Glomerular Filtration Rate Calc 73 mL/min (>90) BUN/Creatinine Ratio 7.4 (10.0-20.0) Serum Glucose 115 mg/dL (74-106) Calcium Level 9.8 mg/dL (8.7-10.4) Magnesium Level 2.4 mg/dL (1.6-2.6) White Blood Count 8.9 10^3/uL (4.4-10.8) Red Blood Count 4.52 10^6/uL (4.5-5.90) Hemoglobin 15.2 g/dL (13.5-17.5) Hematocrit 43.5 % (41.0-53.0) Mean Corpuscular Volume 96.1 fL (80.0-100.0) Mean Corpuscular Hemoglobin 33.7 pg (28.0-32.0) Mean Corpuscular Hemoglobin Concent 35.1 g/dL (32.0-36.0) Red Cell Distribution Width 13.8 % (11.8-14.3) Platelet Count 239 10^3/uL (140-450) Mean Platelet Volume 8.4 fL (6.9-10.8) Neutrophils (%) (Auto) 70.9 % (37.0-80.0) Lymphocytes (%) (Auto) 17.3 % (10.0-50.0) Monocytes (%) (Auto) 10.7 % (0.0-12.0) Eosinophils (%) (Auto) 0.7 % (0.0-7.0) Basophils (%) (Auto) 0.4 % (0.0-2.0) Neutrophils # (Auto) 6.3 10 ^3/uL (1.6-8.6) Lymphocytes # (Auto) 1.5 10 ^3/uL (0.4-5.4) Monocytes # (Auto) 1.0 10 ^3/uL (0-1.3) Eosinophils # (Auto) 0.1 10 ^3/uL (0-0.8) Basophils # (Auto) 0 10 ^3/uL (0-0.2) Nucleated Red Blood Cells 0.1 % Prothrombin Time 11.2 sec (9.3-11.8) Prothrombin Time INR 1.06 (0.9-1.15) Activated Partial Thromboplast Time 31.6 SEC (24.5-34.5) Troponin I High Sensitivity 18 ng/L (</=54) Lactic Acid Level 0.8 mmol/L (0.4-2.0) Test 12/23/24 12:39 12/23/24 12:30 Hemoglobin A1c 5.6 % A1C (<5.7) Total Bilirubin 0.6 mg/dL (0.2-1.0) Aspartate Amino Transferase (AST) 12 U/L (13-40) Alanine Aminotransferase (ALT) 20 U/L (7-40) Alkaline Phosphatase 82 U/L (46-116) Total Protein 7.1 g/dL (5.7-8.2) Albumin 4.9 g/dL (3.2-4.8) Triglycerides Level 164 mg/dL (< 150) Cholesterol Level 215 mg/dL (< 200) LDL Cholesterol 151 mg/dL (< 100) HDL Cholesterol 45 mg/dL (40-59) Lipase 35 U/L (12-53) Urine Color Light-yellow (Yellow) Urine Clarity Clear (Clear) Urine pH 7.0 (5.0-9.0) Urine Specific [place] 1.016 (1.001-1.035) Urine Protein Negative (Negative) Urine Ketones Negative (Negative) Urine Blood Negative /uL (Negative) Urine Nitrite Negative (Negative) Urine Bilirubin Negative (Negative) Urine Urobilinogen Normal mg/dL (Negative) Urine Leukocyte Esterase Negative /uL (Negative) Urine RBC 1 /hpf (0 - 3) Urine Microscopic WBC /HPF (0-3) Urine Squamous Epithelial Cells None seen /hpf (<5) Urine Bacteria None seen /hpf (None Seen) Urine Mucus Few (None Seen) Urine Glucose Normal mg/dL (Normal) Urine Opiates Screen Neg (NEGATIVE) Urine Fentanyl Screen Neg (NEGATIVE) Urine Barbiturates Screen Neg (NEGATIVE) Urine Phencyclidine Screen Neg (NEGATIVE) Urine Amphetamines Screen Neg (NEGATIVE) Urine Benzodiazepines Screen Neg (NEGATIVE) Urine Cocaine Screen Neg (NEGATIVE) Urine Cannabinoids Screen Neg (NEGATIVE) Other Laboratory Tests 12/25/24 06:55 12/24/24 04:13 Brief Hx & Hospital Course: A 49-year-old male patient; with past medical history of essential hypertension and panic attacks; who presented to emergency department after a syncope. #Syncope in the setting of hypertensive emergency; fall precautions; no orthostatic changes; reviewed head CT and carotid ultrasound along with echocardiogram; telemetry; consulted cardiology; left AMA #Chest pain/pressure in the setting of hypertensive emergency; on aspirin and statin; telemetry; reviewed echocardiogram, troponin, and EKG; consulted cardiology; left AMA #Hypertensive emergency; off nicardipine infusion; telemetry; consulted cardiology; left AMA #Hypertensive heart disease with heart failure; not in exacerbation; reviewed echocardiogram; continue antihypertensive medications and adjust according to blood pressure measurements; consulted cardiology; left AMA #Hypokalemia; mild; unclear etiology; replace electrolyte/s as indicated; ordered morning magnesium level; left AMA #Mixed dyslipidemia; reviewed lipid profile; normal A1c of 5.6%; continue statin; left AMA #Panic attacks; no active issues at this time; left AMA #Tobacco use disorder; drug screen negative; counseled on tobacco use cessation; left AMA Patient left without physical examination. Late Entry. This medical document was created using an electronic medical record system with computerized dictation system. Although this document has been carefully reviewed, there might still be some phonetic and typographical errors. These areas are purely typographical due to imperfections of the software programs, and do not reflect any compromise in the patient's medical care. Consults/Reason for consult Consulted cardiology for syncope along with chest pressure/pain Condition at Discharge: Undetermined (Left AMA) Final Diagnosis/Problems List Syncope Rest of diagnoses as above Discharge Disposition: AMA Discharge Instruct/Medications Diet: See Comment (Left AMA) Activity: See Comment (Left AMA) Follow Up/Referral: Left AMA Medications: Left AMA Discharge Statement: "Patient was advised to return to the ER or call 911 if any headaches, dizziness, shortness of breath, chest pain, abdominal pain, bleeding, fevers, or worsening of medical condition. Patient was counseled about treatment plan, medications, possible side effects, patientverbalized understanding. All questions were answered to the best of my ability. This discharge took greater then 30 minutes in planning, reviewing documentation, counseling the patient, and discussing with other team members." ASSESSMENT ASSESSMENT Assessment Date of Service: Dec 25, 2024 Billing Provider: CECIL JESSICA MD Common Visit Codes: 10018-MXM/OBS DISCH DAY >30min CECIL JESSICA MD Dec 25, 2024 10:46
== END 2024-12-25 08:30 | disposition left against medical advice (07) | DRG 199 ==
LOC: EDUNIT# 12:14 → EDBD 12:14 → ER 12:16 → OVERFLOW 23:28 → TELE-WESTW 12-24 10:07
PROVIDERS: ADMIT Internal Medicine; ATTEND Internal Medicine
DX: I16.1 Hypertensive emergency (principal); I50.9 Heart failure, unspecified; E78.2 Mixed hyperlipidemia; E87.6 Hypokalemia; I11.0 Hypertensive heart disease with heart failure; F41.0 Panic disorder [episodic paroxysmal anxiety]; Z53.29 Procedure and treatment not carried out because of patient's decision for other reasons; R55 Syncope and collapse; Z87.891 Personal history of nicotine dependence
CPT/HCPCS: 36415; 70450; 71045; 80048; 80053; 80061; 80307; 81001; 83036; 83605; 83690; 83735; 84484; 85025; 85610; 85730; 93005; 93306; 93886; 96374; 96375; 99291; G0378; J2470